=== PATIENT | female | born 1950 | race Two or more races ===

== ENCOUNTER 2018-05-25 14:30 | Outpatient (CLI) | payer OTHER | END 2018-05-25 15:55 | disposition home or self-care (01) | LOC: RAD 501 14:30 | DX: M25.562 Pain in left knee (principal) ==

== ENCOUNTER 2018-06-24 13:07 | Outpatient (CLI) | payer OTHER | END 2018-06-24 13:12 | disposition home or self-care (01) | LOC: RAD 501 13:07 | DX: M54.5 Low back pain (principal); M54.16 Radiculopathy, lumbar region ==